=== PATIENT | male | born 1990 | race Caucasian/White ===

== ENCOUNTER 2021-05-19 05:51 | Day surgery (SDC) | payer OTHER ==
[~2021-05-19] VITALS: Ht 190.5 cm; Wt 73.0 kg
--- NOTE | ~2021-05-19 | OR ---
[facility] [address] [place], [place] [address] Draft DATE OF OPERATION: 05/19/2021 SURGEON: Noe Pedraza MD PREOPERATIVE DIAGNOSIS: Work related large right inguinal hernia (painful, but reducible). POSTOPERATIVE DIAGNOSIS: Right inguinal hernia, direct and indirect components. PROCEDURES: 1. Right inguinal hernia repair. 2. Implantation of Prolene mesh underlay technique. ANESTHESIA: General LMA; Zander Hamilton, AIR GRINDER and local 20 mL of 0.25% Marcaine with epinephrine. INDICATION: This 30-year-old white man is a patient of Jane Nascimento and developed a large painful right bulge of the inguinal area while working at [employer] in [place]. He is admitted at this time to undergo right inguinal hernia repair. He understands the risks of bleeding, infection, recurrence, and other unforeseen complications and wished to proceed. FINDINGS: Cord structures were normal. There was a relatively small indirect hernia sac, but defect in the floor of the inguinal canal consistent with direct hernia as well. Repair consisted of excision of redundant hernia sac as well as implantation of Prolene mesh in an underlay technique securing the floor completely. DESCRIPTION OF PROCEDURE: The patient was brought to the operating room, given a general anesthetic. Preoperative antibiotic Ancef was given. Sequential compression device stockings used and heparin subcutaneously administered. The lower abdomen was clipped and prepared with a chlorhexidine solution and draped sterilely. A small incision was made along the line of skin tension cephalad to the pubic tubercle. Dissection was carried through the subcutaneous tissue with electrocautery and blunt dissection. The inferior epigastric vessels were ligated with 2-0 Vicryl ties and divided. External oblique was incised along its fibers revealing the underlying cord. There is no dominant ilioinguinal nerve identified. Using blunt and electrocautery dissection, the cord was freed from the PATIENT NAME: PAULINA RYAN OPERATIVE REPORT DATE OF : 88 REPORT #: [id number] PHYSICIAN: NOE PEDRAZA MD PCP: JANE NASCIMENTO REPORT IS CONFIDENTIAL AND NOT TO BE RELEASED WITHOUT AUTHORIZATION [facility] [address] [place], [place] [address] Draft floor and encircled with a Trang drain. There appeared to be attenuation of the fibers of the fascia of the inguinal canal. The cremasteric muscle fibers were incised with electrocautery circumferentially in the anterolateral aspect of the cord revealing an underlying hernia sac, this was dissected free from the cord with blunt dissection preserving blood vessels to the cord structures as well. The hernia sac extended distally along the cord, it was transected circumferentially leaving a tip of the hernia sac with cord structures distally. The hernia sac was dissected free more proximally, found to have a transition of the ring to the peritoneal cavity rather obviously. There was no sign of sliding component or incarcerated viscus. The neck of the sac was secured with a 2-0 silk suture and redundant hernia sac amputated and passed for pathology. An Allis clamp was applied to the tendon of the transversus abdominis and the attenuated fibers of the fascia of the transversalis were incised with electrocautery. Blunt dissection in the properitoneal space was undertaken. A segment of Prolene mesh was cut to an elliptical configuration and secured in an underlay technique with interrupted 2-0 Prolene sutures. A defect was cut in the graft to accommodate the cord and the tails of the graft were secured laterally with all due care. 20 mL of 0.25% Marcaine with epinephrine was injected locally. The cord was replaced in the canal. External oblique was reapproximated with running 2-0 Vicryl. Mayito layer was reapproximated with interrupted 2-0 Vicryl as well. The skin was closed with a running subcuticular of 3-0 Vicryl. Steri-Strips were applied. An Acticoat dressing was then applied. The patient was ultimately extubated and transferred to the recovery room in good condition having suffered no complications. Sponge, needle, and instrument counts were reported as correct x3. MD JOSE RAUL Bahena/MAYA /[id number] cc: VIDYA Mead Copies: JANE NASCIMENTO ~ PATIENT NAME: PAULINA RYAN OPERATIVE REPORT DATE OF : 88 REPORT #: [id number] PHYSICIAN: NOE PEDRAZA MD PCP: JANE NASCIMENTO REPORT IS CONFIDENTIAL AND NOT TO BE RELEASED WITHOUT AUTHORIZATION
[~2021-05-19 05:51] MED LIST: AMBIEN10 MG PO; ATIVAN2 MG PO
[2021-05-19] MEDS ORDERED: TYLENOL EXTRA500 MG PO (09:11)
[2021-05-19] MEDS ORDERED: MOTRIN IB200 MG PO (09:11)
[2021-05-19] MEDS ORDERED: PERCOCET 7.5-31 EACH PO (09:11)
[2021-05-20] MEDS ORDERED: ACETAMINOPHEN500 MG PO (07:49)
[2021-05-20] MEDS ORDERED: IBUPROFEN200 MG PO (07:54)
[2021-05-20] MEDS ORDERED: LORAZEPAM1 MG PO (08:01)
[2021-05-20] MEDS ORDERED: ZOLPIDEM TART12.5 MG PO (08:04)
[2021-05-20] MEDS ORDERED: OXYCODON-ACETA1 EAC2 PO (09:01)
--- NOTE | 2021-05-20 14:31 | PATH ---
[facility] [address] [place], [place] [address] Signed SPECIMEN(S): A RIGHT INDIRECT INGUINAL HERNIA SAC SPECIMEN SOURCE: A. RIGHT INDIRECT INGUINAL HERNIA SAC CLINICAL HISTORY: Right inguinal hernia repair. FINAL PATHOLOGIC DIAGNOSIS: Hernia sac, right inguinal, herniorrhaphy: - Mesothelial lined fibroconnective tissue, clinically hernia sac. BRP:cml:[id number] MICROSCOPIC EXAMINATION: Histologic sections of all submitted blocks are examined by light microscopy. These findings, together with the gross examination, support the pathologic diagnosis. GROSS DESCRIPTION: The specimen, labeled "AJ, right indirect inguinal hernia sac," is received in formalin and consists of one irregular shaped fibromembranous tissue fragment that measures 3.2 x 1.5 x 0.5 cm. Sectioning through the specimen reveals pink-villarreal, focally congested tissue. Line Producer sections are submitted in cassette (A1). JS (under the direct supervision of a pathologist) The Gross Description was prepared using a voice recognition system. The report was reviewed for accuracy; however, sound-alike word errors, addition and/or deletions may occur. If there is any question about this report, please contact Client Services. PERFORMING LABORATORY: The technical component was performed by [facility], [address] [place] [id number] (Contact Center Engineer: Marija Rojo MD; CLIA# [id number]). [facility] [address] [address] (CLIA# [id number]). Diagnostician: Darius Alonzo MD Pathologist Electronically Signed 05/20/2021 PATIENT NAME: PAULINA RYAN PATHOLOGY DATE OF : 88 REPORT #: [id number] PHYSICIAN: [facility] PCP: SANDY NASCIMENTO REPORT IS CONFIDENTIAL AND NOT TO BE RELEASED WITHOUT AUTHORIZATION [address] [address] Signed Copies: ~ PATIENT NAME: PAULINA RYAN PATHOLOGY DATE OF : 88 REPORT #: [id number] PHYSICIAN: [facility] PCP: SANDY NASCIMENTO REPORT IS CONFIDENTIAL AND NOT TO BE RELEASED WITHOUT AUTHORIZATION
== END 2021-05-19 10:50 | disposition home or self-care (01) ==
LOC: DS 05:51
PROVIDERS: ATTEND Surgery
PROC: 0YU50JZ Supplement Right Inguinal Region with Synthetic Substitute, Open Approach (ICD-10-PCS; principal; 2021-05-19 05:00)
DX: K40.90 Unilateral inguinal hernia, without obstruction or gangrene, not specified as recurrent (principal)
CPT/HCPCS: 00830; A9270; C1781; J1100; J1644; J1885; J2001; J2405; J2704; J3010; J3490; J7121